=== PATIENT | female | born 1965 ===

== ENCOUNTER 2020-05-19 08:10 | Day surgery (SDC) | payer OTHER ==
[2020-05-19 08:33] LABS: Specific Gravity <= 1.005 (1.005-1.030)
[2020-05-19] MEDS ORDERED: propofoL 200 MG/20 ML VIAL IV ONE ×9 (08:45→14:12)
[2020-05-19] MEDS ORDERED: NS 0.9% VIAL 40 ML ONE (08:45)
[2020-05-19] MEDS ORDERED: CEFAZOLIN SODIUM 1 GM/VIAL ONE ×2 (08:45→13:58)
[2020-05-19] MEDS ORDERED: GENTAMICIN SULF 80 MG/2ML INJ ONE (08:46)
[2020-05-19] MEDS ORDERED: LIDOCAINE 1% W/EPI 1:100,000 MDV 50 ML VIAL ONE (08:46)
[2020-05-19] MEDS ORDERED: ROCURONIUM 50 MG/5 ML VIAL IV ONE (08:46)
[2020-05-19] MEDS ORDERED: MIDAZOLAM HCL 2 MG/2 ML INJ ONE (08:46)
[2020-05-19] MEDS ORDERED: FENTANYL CITR 250 MCG/5 ML ONE (08:46)
[2020-05-19] MEDS ORDERED: LIDOCAINE 2% MPF 5 ML VIAL ONE (08:46)
[2020-05-19] MEDS ORDERED: dexAMETHasone 10 MG/ML VIAL ONE (08:46)
[2020-05-19] MEDS ORDERED: KETOROLAC 30 MG/ML INJ ONE (08:46)
[2020-05-19] MEDS ORDERED: ONDANSETRON 4 MG/2 ML VIAL ONE ×2 (08:47→09:41)
[2020-05-19] MEDS ORDERED: BACITRACIN 50000 UNIT VIAL ONE (08:47)
[2020-05-19] MEDS ORDERED: VECURONIUM 10 MG/VIAL IV ONE (08:47)
[2020-05-19] MEDS ORDERED: NS 0.9% VIAL 10 ML ONE (08:47)
[2020-05-19] MEDS ORDERED: CEFAZOLIN/SWI 1gm 1 GM/10 ML SYR ONE (09:12)
[2020-05-19] MEDS ORDERED: SCOPOLAMINE HYDROBROMIDE PATCH TD ONE (09:12)
[2020-05-19] MEDS ORDERED: Ringers Lactate 1,000 ML IV ONE ×3 (09:12→14:00)
[2020-05-19] MEDS ORDERED: NS 0.9% VIAL 20 ML ONE (13:58)
[2020-05-19] MEDS ORDERED: DIPHENHYDRAMINE 50 MG/ML VIAL ONE (14:20)
[2020-05-19] MEDS ORDERED: NEOSTIGMINE 1 MG/ML -5 ML ONE (14:20)
[2020-05-19] MEDS ORDERED: GLYCOPYRROLATE 0.2 MG/ML SYR ONE (14:20)
[2020-05-19] MEDS ORDERED: Mastisol Adhesive Liq ONE ×2 (14:27→14:28)
[2020-05-19 17:03] VITALS: TEMP 97.6; O2SAT 99
[2020-05-19 17:04] VITALS: BP 110/72
--- NOTE | 2020-05-20 09:25 | OP ---
Surgeon: Robert Hurd MD Preoperative Diagnosis: Breast descent. Postoperative Diagnosis: Breast descent. Procedure: Lift with minimal reduction. Anesthesia: General. Procedure In Detail: After satisfactory induction of general anesthesia, chest was prepped with DuraPrep, dry sterile drapes were applied in the usual manner. A 45 mm template was used to outline the right and left areolas and concentric wilton approximately 9 cm in diameter drawn in opposite side. Intervening skin was de-epithelialized with a dermabrader after the outer incision was made with scalpel, inner incision was made with zigzag incision. Then, after both breasts were incised, the patient was marked up for the straps. The straps were elevated in right breast 12 o'clock and 3 o'clock position, left breast mirror- image. The straps were elevated and then a scalpel was used to make incision full-thickness around the other incision and dissected down. The flap was thinned to approximately 1 cm inferior lateral and dissected down towards the fascia in the predetermined areas. After this was done, the straps were then woven through the parenchyma of the breast passing first vertically from cephalad to caudad and then caudad to cephalad, then to the site leaving the areola and then through the pec major muscle and brought out at the 9 o'clock position and left there. The medial strap was passed from medial to lateral and lateral to medial and looped through pec major muscle, and back to itself, looped through the pec major muscle and brought out at the 6 o'clock position. At 6 o'clock position, the straps were then looped through the vertical flap and then the horizontal strap was attached to the vertical strap, sewn to itself with 2-0 PDS suture. This was done on both sides. Total amount removed from the right breast was 60 and left breast 80. The wounds were temporary stapled shut. Sat up with symmetry and then returned to supine. Wounds were irrigated with antibiotic solution. 10 JOSE RAUL was brought out of the axilla, was sewen with 2 o silk. Wound was closed with a CV2 Hatch-Jens pursestring followed by 3-0 PDS interrupted and running subcuticular. Tinc of benzoin, Steri-Strips, followed by Esmarch, fluffs, and Samson wrap was applied. The patient tolerated procedure well and returned to recovery room. MARY Voice ID: [id number] Report ID: [id number] RAFAEL
== END 2020-05-19 16:50 | disposition home or self-care (01) ==
LOC: OR 08:10
PROVIDERS: ATTEND Specialist
PROC: 0HSV0ZZ Reposition Bilateral Breast, Open Approach (ICD-10-PCS; principal; 2020-05-19 09:00)
DX: N64.81 Ptosis of breast (principal); Z20.822 Contact with and (suspected) exposure to COVID-19
CPT/HCPCS: 81025; 19316; J2704 ×8; J1200; J1580; J2250; J3010; J1100; J2710; J0690 ×3; J7120 ×3; J2405 ×2; 88305

== ENCOUNTER 2020-12-08 07:53 | Day surgery (SDC) | payer OTHER ==
[2020-12-08] MEDS ORDERED: Ringers Lactate 1,000 ML IV ONE ×4 (09:28→16:16)
[2020-12-08] MEDS ORDERED: SCOPOLAMINE HYDROBROMIDE PATCH TD ONE (09:40)
[2020-12-08] MEDS: CEFAZOLIN/NS 1gm 1 GM/50 ML BAG ONE ×2 (10:53→11:02)
[2020-12-08] MEDS ORDERED: GENTAMICIN SULF 80 MG/2ML INJ ONE (10:53)
[2020-12-08] MEDS ORDERED: CEFAZOLIN SODIUM 1 GM/VIAL ONE ×2 (10:53→12:31)
[2020-12-08] MEDS ORDERED: Mastisol Adhesive Liq ONE ×2 (10:53→15:50)
[2020-12-08] MEDS ORDERED: NS 0.9% VIAL 10 ML ONE ×2 (10:54→11:20)
[2020-12-08] MEDS ORDERED: ONDANSETRON 4 MG/2 ML VIAL ONE ×2 (11:20→14:05)
[2020-12-08] MEDS ORDERED: MIDAZOLAM HCL 2 MG/2 ML INJ ONE (11:20)
[2020-12-08] MEDS ORDERED: dexAMETHasone 10 MG/ML VIAL ONE (11:20)
[2020-12-08] MEDS ORDERED: VECURONIUM 10 MG/VIAL IV ONE (11:20)
[2020-12-08] MEDS ORDERED: FENTANYL CITR 250 MCG/5 ML ONE (11:20)
[2020-12-08] MEDS ORDERED: ROCURONIUM 50 MG/5 ML VIAL IV ONE (11:20)
[2020-12-08] MEDS ORDERED: propofoL 200 MG/20 ML VIAL IV ONE ×8 (11:20→14:57)
[2020-12-08] MEDS ORDERED: KETOROLAC 30 MG/ML INJ ONE (11:21)
[2020-12-08] MEDS ORDERED: NS 0.9% VIAL 20 ML ONE (11:21)
[2020-12-08] MEDS ORDERED: LIDOCAINE 1% W/EPI 1:100,000 MDV 20 ML VIAL ONE (11:21)
[2020-12-08] MEDS ORDERED: LIDOCAINE 2% MPF 5 ML VIAL ONE (11:21)
[2020-12-08] MEDS ORDERED: LANO/MINERAL OIL/PETRO 3.5 GM ONE (12:30)
[2020-12-08] MEDS ORDERED: DIPHENHYDRAMINE 50 MG/ML VIAL ONE (13:47)
[2020-12-08 18:59] VITALS: BP 119/79; TEMP 97.9; O2SAT 99
--- NOTE | 2020-12-09 05:54 | OP ---
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 Procedure Performed: Mastopexy revision and explantation of the chin implant and re-implantation of Medpor implant. Anesthesia: General. Procedure In Detail: After satisfactory induction of general anesthesia, the breasts were prepped wi th DuraPrep, dry sterile drapes were applied in the usual manner. A 42 template was used to outline the right and left areola. Then, a concentric quechan 1 cm additional circumference was made and then the intervening skin was de-epithelialized with a dermabrader. Then, the spiral flap was elevated a nd we used a skin graft later. The patient then had dissection proceeded down toward the base of the breast. The patient then had excess breast tissue in the tail of Dumont area and axillary area babar alpesh. On the right, it was 18 g and the left was 14, and then at the base of the breast, the dermal s trap was passed around the base and tied to itself with 2 Ethibond suture. After this was done, the patient then had the wounds carefully stapled shut. Left side was done in the identical manner. We sat up facing the computer pulled up the excess breast tissue inferiorly as the patient de sired. Then, the wound was closed with 10 JOSE RAUL, was out of the axilla. The wound was irrigated with a ntibiotic solution. 10 JOSE RAUL was sewn in place with 2-0 silk suture. The wound was closed with a CV-2 pursestring followed by interrupted 4-0 PDS and 4-0 PDS running subcuticular. Dressing of tincture o f benzoin, Steri-Strips, followed by Esmarch, fluffs, and Samson wrap. Attention was directed to the ch in. The old approach was used. The mucosa was infiltrated about 1 cm off the sulcus and dissection proceeded down. The midline was then split the implant was a silicone implant, had been s ewn in place with what appeared to be Prolene. The Prolene was cut, the implant was removed, and the n the patient had a periosteal elevator used to elevate laterally and medially. The chin implant had eroded and left a bony spur inferiorly but eroded over the body of the mandible. We had to run over and grind off the sharp edges of the remaining mandible. Then, the Medpor implant was cut and place d. The temp was inserted into the right side [address] The wound was irrigate d with antibiotic solution. Muscle was closed with 3-0 Vicryl. The mucosa was closed with 4-0 chrom ic in a running locking. Steri-Strips were applied over the chin holding the implant in place. The patient tolerated the procedure well and returned to Recovery. LINDA/FLAQUITA Voice ID: [id number] Report ID: [id number]
== END 2020-12-08 18:50 | disposition home or self-care (01) ==
LOC: OR 07:53
PROVIDERS: ATTEND Specialist
PROC: 0HSV0ZZ Reposition Bilateral Breast, Open Approach (ICD-10-PCS; 2020-12-08)
PROC: 0HB5XZZ Excision of Chest Skin, External Approach (ICD-10-PCS; 2020-12-08)
PROC: 0W020ZZ Alteration of Face, Open Approach (ICD-10-PCS; principal; 2020-12-08 10:00)
DX: N65.0 Deformity of reconstructed breast (principal); M26.09 Other specified anomalies of jaw size; L90.5 Scar conditions and fibrosis of skin
CPT/HCPCS: 20680; 88305; 15828; 19380; 11406; J2704 ×8; J1200; J1580; J2250; J3010; J1100; J0690 ×3; J7120 ×4; J2405 ×2

== ENCOUNTER 2020-12-24 07:23 | Day surgery (SDC) | payer OTHER ==
[2020-12-24] MEDS ORDERED: Ringers Lactate 1,000 ML IV ONE (07:52)
[2020-12-24] MEDS ORDERED: CEFAZOLIN/NS 1gm 1 GM/50 ML BAG ONE (08:39)
[2020-12-24 08:58] VITALS: O2SAT 100
[2020-12-24] MEDS ORDERED: LIDOCAINE 1% W/EPI 1:100,000 MDV 20 ML VIAL ONE (10:27)
[2020-12-24] MEDS ORDERED: MIDAZOLAM HCL 2 MG/2 ML INJ ONE (11:59)
[2020-12-24] MEDS ORDERED: FENTANYL CITR 100 MCG/2 ML ONE (11:59)
[2020-12-24] MEDS ORDERED: dexAMETHasone 10 MG/ML VIAL ONE (12:00)
[2020-12-24] MEDS ORDERED: LIDOCAINE 2% MPF 5 ML VIAL ONE (12:00)
[2020-12-24] MEDS ORDERED: ONDANSETRON 4 MG/2 ML VIAL ONE (12:00)
[2020-12-24] MEDS ORDERED: propofoL 200 MG/20 ML VIAL IV ONE (12:00)
[2020-12-24] MEDS ORDERED: KETOROLAC 30 MG/ML INJ ONE (12:01)
[2020-12-24] MEDS ORDERED: GLYCOPYRROLATE 0.2 MG/ML SYR ONE ×3 (12:01→14:00)
[2020-12-24] MEDS ORDERED: ROCURONIUM 50 MG/5 ML VIAL IV ONE (12:06)
[2020-12-24] MEDS ORDERED: BSS OPTHALMIC SOL 15 ML BOT OPTH ONE (13:03)
[2020-12-24] MEDS ORDERED: NEOSTIGMINE 1 MG/ML -5 ML ONE (13:24)
[2020-12-24] MEDS ORDERED: CODEINE 30MG/APAP 300MG TAB ONE (15:18)
[2020-12-24 17:10] VITALS: TEMP 97.3
[2020-12-24 17:15] VITALS: BP 106/71
--- NOTE | 2020-12-28 12:40 | OP ---
Surgeon: Robert Hurd MD Preoperative Diagnosis: Foreign body in the right upper eyelid and hypogenia status post chin implan t. Postoperative Diagnosis: Foreign body in the right upper eyelid and hypogenia status post chin impla nt. Procedure Performed: Debridement of skin and subcutaneous tissue, simple closure of wound with remov al of foreign body. Removal of 7 mm chin implant, replacement with 5 mm chin implant, Medpor, surgic al dressing. Anesthesia: General. Procedure In Detail: After satisfactory induction of general anesthesia, the right upper eyelid was infiltrated, as well as the chin and the oral mucosa. The eye was rinsed, prepped with Betadine scru b and Betadine paint. Dry sterile drapes were applied in the usual manner. BSS was used in the glob e. An incision was made through the scar that was near the brow laterally on the right. Dissection proceeded down through the muscle. Foreign body was identified, removed with a Bureau tip. It darell eared to be glass, 2 fragments. Then, the wound was closed with 6-[address] essings consisted of Steri-Strips and Mastisol. Attention was then turned to the chin. This area yates d previously been infiltrated in an oral approach. A needle was used to make the incision . Dissection proceeded down the vertical midline down to the prosthesis. The screws were removed. Prosthesis was removed. It was a 7 mm Medpor. The implant was intact. No broken portions of it. T he screw was also intact. The wound was irrigated with antibiotic solution. Then, the periosteal el evator was used to dissect again and then a small implant of 5 mm was placed, and it was he ld in place by drilling a hole. A 1.7 screw was placed using a 1.7 drill and it was 8 mm long. It w as placed through the protrusion from the left hemiprosthesis into the right hemiprosthesis. The scr ew went to the right side and apparently both ports. Then, the wound was irrigated with antibiotic s olution. A 3-0 Vicryl was used to close the muscle, then a running and locking 4-0 chromic suture us ed to close the oral mucosa. Tincture of benzoin and Steri-Strips applied over the chin. The patien t tolerated the procedure well and returned to recovery. GH/MODL Voice ID: [id number] Report ID: [id number]
== END 2020-12-24 16:30 | disposition home or self-care (01) ==
LOC: OR 07:23
PROVIDERS: ATTEND Specialist
PROC: 0W020ZZ Alteration of Face, Open Approach (ICD-10-PCS; 2020-12-24)
PROC: 0W050JZ Alteration of Lower Jaw with Synthetic Substitute, Open Approach (ICD-10-PCS; 2020-12-24)
PROC: 08C Eye, Extirpation (ICD-10-PCS; principal; 2020-12-24 10:30)
DX: S01.141A Puncture wound with foreign body of right eyelid and periocular area, initial encounter (principal)
CPT/HCPCS: 88302; 67938; 15828; 21120; U0003; J2704; J2250; J3010; J1100; J2710; J0690; J7120; J2405; 88305